=== PATIENT | female | born 1955 | race Caucasian/White ===

== ENCOUNTER 2020-05-25 14:49 | Emergency (ER) | payer OTHER, SELFPAY ==
--- NOTE | ~2020-05-25 | CT_ITS ---
EXAMINATION: CT abdomen pelvis wo con DATE: 05/25/2020 17:29 INDICATION: Right flank pain TECHNIQUE: Computed tomography (CT) of the abdomen and pelvis was performed without intravenous contr ast. The dose-length product (DLP) was 1366.69 mGy-cm. Automated exposure control and iterative recon struction technique were employed. COMPARISON: 07/06/2015, 05/14/2008 FINDINGS: The lung bases are clear. The heart size is normal. Again seen is a 6.0 x 4.6 cm low-attenu ation mass of liver segment VII with slight increase in size but benign behavior, likely a hemangioma . The gallbladder is surgically absent. The spleen, pancreas, and adrenal glands are normal. The left kidney is unremarkable. There is a 3 mm stone at the right ureterovesicular junction which causes mo derate right hydroureteronephrosis. There is fat stranding surrounding the right kidney. There is berta cified atherosclerosis of the aorta and many of the other arteries. No pathologically enlarged abdomi nal or pelvic lymph nodes are identified. There is no free intraperitoneal gas or evidence of bowel o bstruction. There is severe lumbar spondylosis. There is a small fat-containing umbilical hernia. Sarah nges of left total hip arthroplasty are noted. IMPRESSION: 1. 3 mm stone at the right ureterovesicular junction causing moderate right hydroureteronephrosis. Ri ght perinephric fat stranding could reflect superimposed pyelonephritis. Reviewed, dictated and finalized at location A. IMPRESSION: 1. 3 mm stone at the right ureterovesicular junction causing moderate right hyd roureteronephrosis. Right perinephric fat stranding could reflect superimposed pyelonephritis.
--- NOTE | ~2020-05-25 | XR_ITS ---
EXAMINATION: XR abdomen/kub 1V INDICATION: Right flank pain TECHNIQUE: Supine views of the abdomen were obtained on 2 radiographs. COMPARISON: CT from today and KUB dated 05/14/2008 FINDINGS: The 3 mm right ureterovesicular junction stone described on CT is not definitely identified . There are changes of left total hip arthroplasty. The bowel gas pattern is normal. The visualized l silvia bases are clear. IMPRESSION: 1. Known right ureterovesicular junction stone not definitely identified. Reviewed, dictated and finalized at location A.
[2020-05-25 15:00] VITALS: BP 164/91; PULSE 70; RESP 18; TEMP 36.3; O2SAT 98
[2020-05-25 15:15] LABS: Basophils Absolute Auto 0.1 K/mm3 (0.0-0.1); Basophils Percent Auto 0.5 % (0.2-1.2); Eosinophils Absolute Auto 0.1 K/mm3 (0-0.3); Eosinophils Percent Auto 1.1 % (0-4.4); Hematocrit 41.4 % (37.0-47.0); Hemoglobin 13.8 g/dL (12.0-15.0); Immature Granulocyte Absolute 0.05 K/mm3 (0.00-0.031); Immature Granulocyte Percent A 0.4 % (0-0.5); Lymphocytes Absolute Auto 1.91 K/mm3 (0.9-3.2); Lymphocytes Percent Auto 16.1 % (18.3-44.2); Mean Corpuscular HGB Conc 33.3 g/dl (32-36); Mean Corpuscular Hemoglobin 29.1 pg (26-34); Mean Corpuscular Volume 87.2 fl (80-100); Mean Platelet Volume 8.7 fl (7.4-10.4); Monocytes Absolute Auto 0.6 K/mm3 (0.1-0.6); Monocytes Percent Auto 4.9 % (2.6-8.5); Neutrophils Absolute Auto 9.2 K/mm3 (1.3-6.7); Platelet Count Result 335 k/mm3 (150-375); Red Blood Count 4.75 M/mm3 (4.2-5.4); Red Cell Distribution Width 13.3 % (11.5-14.5); White Blood Count 11.9 K/mm3 (4.5-10.0)
[2020-05-25 15:27] LABS: Blood Urea Nitrogen 24 mg/dL (7-17); Calcium 9.4 mg/dL (8.4-10.2); Carbon Dioxide 25 mmol/L (22-30); Chloride 108 mmol/L (98-107); Estimated CRCL calculation 95 ml/min; Estimated Glomerular Filt Rate > 60; Glucose 113 mg/dL (65-105); Potassium 4.2 mmol/L (3.4-5.0); Sodium 139 mmol/L (137-145)
--- NOTE | 2020-05-25 17:10 | ED.ABDPAIN ---
HPI - Abdominal Pain General Chief Complaint: Abdominal Pain Stated Complaint: Possible Kidney Stones Time Seen by Provider: 05/25/20 16:48 Source: patient Mode of arrival: ambulatory Limitations: no limitations History of Present Illness HPI narrative: THis patient is a 64 year old female with history of kidney stones who presents with complaint of right flank pain. THis pain started at noon and she states it is similar to previous kidney stone 5 years ago. She reports pain has constant and severe. Her pain radiates to her right lower abdomen. She has associated nausea but no vomiting. MD elicited complaint: flank pain Onset (ago): hour(s) (5) Pain Consistency: constant Location: R flank Severity: severe Migration to: RLQ Relieving factors: nothing Treatments prior to arrival: prescription analgesics (tylenol with codeine) Related Data Allergies Allergy/AdvReac Type Severity Reaction Status Date / Time Penicillins Allergy Mild Verified 02/17/12 12:54 Sulfa (Sulfonamide Allergy Mild Verified 02/17/12 12:54 Antibiotics) Review of Systems Review of Systems: All systems reviewed & are unremarkable except as noted in HPI and below Constitutional: Constitutional: Denies chills and Denies fever(s) Gastrointestinal: Gastrointestinal: Reports abdominal pain, Denies constipation, Denies diarrhea, Reports nausea and Denies vomiting Genitourinary: Genitourinary: Reports nocturia and Reports dysuria Musculoskeletal: Musculoskeletal: Reports back pain PMFSH Past Medical History Medical History (Updated 05/25/20 @ 19:30 by Kate Tubbs MD) Depression Diabetes mellitus Hypertension Migraine Surgical History Surgical History (Updated 05/25/20 @ 17:11 by Kate Tubbs MD) History of partial hysterectomy Hx of appendectomy Social History Social History (Updated 05/25/20 @ 17:11 by Kate Tubbs MD) Smoking status: Never smoker Alcohol intake: never Gender identity (if verbalized by the patient): Female Exam Narrative: Exam Narrative: GENERAL: Well-appearing, well-nourished, and in no acute distress. morbidly obese HEAD: Normocephalic, atraumatic EYES: PERRLA and EOMI, conjunctiva clear without discharge THROAT:Mucous membranes moist, NECK: Supple, without lymphadenopathy or mass RESPIRATORY: No respiratory distress, Airway patent, Respirations non-labored, Clear to auscultation without rales, rhonchi or wheeze HEART: Regular rate and rhythm. No murmur heard. Normal peripheral pulses. ABDOMEN: Soft, RUQ tTP, right lower TTP, nondistended, normal active bowel sounds. No masses. No rebound or guarding, No organomegaly. EXTREMITIES: No edema, normal strength with full range of motion. SKIN: Warm, dry, normal color without rash NEURO: Alert and oriented x3. CN 2-12 grossly intact. No focal deficits. PSYCH: Normal mood and affect. Course Reevaluation(s) Reevaluation #1: I Discussed with patient findings of ureteral stone. She denies any questions or concernes. Date: 05/25/20 Time: 19:29 Vital Signs Vital signs: Vital Signs Temperature 97.4 F L 05/25/20 15:00 Pulse Rate 70 05/25/20 15:00 Respiratory Rate 18 05/25/20 15:00 Blood Pressure 164/91 H 05/25/20 15:00 Pulse Oximetry 98 05/25/20 15:00 Temperature 97.4 F L 05/25/20 15:00 Pulse Rate 64 05/25/20 19:00 Respiratory Rate 16 05/25/20 19:00 Blood Pressure 169/94 H 05/25/20 19:00 Pulse Oximetry 98 05/25/20 15:00 MDM - Abdominal Pain Lab Data Attestation: I reviewed the patient's lab results. Result diagrams: 05/25/20 15:05 05/25/20 15:05 Labs: Lab Results 05/25/20 05/25/20 05/25/20 Range/Units 15:05 15:05 15:05 WBC 11.9 H (4.5-10.0) K/mm3 RBC 4.75 (4.2-5.4) M/mm3 Hgb 13.8 (12.0-15.0) g/dL Hct 41.4 (37.0-47.0) % MCV 87.2 (80-100) fl MCH 29.1 (26-34) pg MCHC 33.3 (32-36) g/dl RDW 13.3 (11.5-14.5) % Plt
[2020-05-25 17:23] LABS: Alanine Aminotransferase 20 U/L (4-35); Albumin Level 4.4 g/dL (3.5-5.1); Alkaline Phosphatase 87 U/L (38-126); Aspartate Amino Transferase 25 U/L (14-36); Bilirubin,Total 0.4 mg/dL (0.2-1.3); Lipase 39 U/L (23-300)
[2020-05-25] MEDS: MORPHINE SULFATE 4 MG/ML INJ IV PUSH (18:03)
[2020-05-25] MEDS: ONDANSETRON INJ 4 MG/2 ML VIAL IV PUSH (18:04)
[2020-05-25 18:23] LABS: Add Urine Microscopic? YES; Appearance Urine Clear (Clear); Bilirubin Urine Negative (Negative); Blood Urine Negative (Negative); Color Urine Yellow (Yellow); Glucose Urine UA Negative (Negative); Ketones Urine Negative (Negative); Leukocyte Esterase Ur Trace LEU/UL (Negative); Mucus Urine Rare /lpf; Nitrate Urine Negative (Negative); Protein Urine Negative (Negative); Specific Grav Ur 1.024 (1.001-1.035); Squamous Epithelial Cell Urine Moderate /hpf (Few); Urobilinogen Urine Negative mg/dL (<2.0)
[2020-05-25] MEDS: TAMSULOSIN HCL 0.4 MG CAPSULE PO (18:58)
[2020-05-25] MEDS: KETOROLAC 30 MG/ML VIAL (*BKC) IV PUSH (18:58)
[2020-05-25 19:00] VITALS: BP 169/94; PULSE 64; RESP 16
== END 2020-05-25 20:00 | disposition home or self-care (01) ==
PROVIDERS: Emergency Medicine; Emergency Provider General Practice; PCP Family Medicine
DX: N13.2 Hydronephrosis with renal and ureteral calculous obstruction (principal); F32.9 Major depressive disorder, single episode, unspecified; E11.9 Type 2 diabetes mellitus without complications; I10 Essential (primary) hypertension
CPT/HCPCS: 36415; 74018; 74176; 80048; 80076; 81001; 83690; 85025; 96374; 96375; 99284; A9270; J1885; J2270; J2405

== ENCOUNTER 2021-03-15 09:39 | Emergency (ER) | payer MEDICARE, MEDICAID, SELFPAY ==
--- NOTE | ~2021-03-15 | XR_ITS ---
EXAMINATION: XR foot LT min 3V DATE: 03/15/2021 09:57 INDICATION: Diffuse left foot pain and popping while walking. TECHNIQUE: Dorsoplantar, two oblique and lateral views of the left foot were obtained. COMPARISON: None. FINDINGS: Bone alignment is normal. No fracture. Multiple lucencies in the midfoot, many centered along the tar mick metatarsal joints which could represent degenerative subchondral cysts or erosions. The latter is favored as there are additional juxta articular erosions at the dorsal lateral aspect of the anterio r process of the calcaneus and at the dorsal medial aspect of the head of the talus with overhanging edges as classically seen with gout. Polyarticular osteoarthritis, moderate severity at the central t arsal metatarsal joints and mild at the remaining joints in the mid and hindfoot, the first metatarso phalangeal and several interphalangeal joints. Small Achilles calcaneal and large plantar calcaneal s purs. IMPRESSION: 1. Multiple likely erosions in the midfoot centered along the tarsal metatarsal joints shows at the a nterior talus and calcaneus which are suspicious for gout. 2. Mild to moderate polyarticular osteoarthritis most prominent in the midfoot. Reviewed, dictated and finalized at location A. IMPRESSION: 1. Multiple likely erosions in the midfoot centered along the tarsal metatarsal joints shows at the anterior talus and calcaneus which are suspicious for gout . 2. Mild to moderate polyarticular osteoarthritis most prominent in the midfoot.
--- NOTE | ~2021-03-15 | XR_ITS ---
XR ankle LT min 3V DATE: 03/15/2021 11:19 INDICATION: Injury, lateral swelling TECHNIQUE: 4 views COMPARISON: None FINDINGS: There is prominent osteoarthritic change at the tarsometatarsal joints as well as degenerat shikha change at the tarsal joints.. Prominent plantar and mild posterior calcaneal enthesopathy. No recent fracture or dislocation of the ankle or disruption of the ankle mortise is evident. IMPRESSION: No recent fracture or dislocation of the ankle Reviewed, dictated and finalized at location A.
[2021-03-15 09:41] VITALS: BP 143/79; PULSE 65; RESP 17; TEMP 36.6; O2SAT 99
--- NOTE | 2021-03-15 10:59 | ED.LOWEXIN ---
HPI - Extremity Injury (Lower) General Chief Complaint: Extremity Injury, Lower Stated Complaint: foot injury Time Seen by Provider: 03/15/21 10:50 Source: patient Mode of arrival: ambulatory Limitations: no limitations History of Present Illness HPI Narrative: This is a 65 year old female that presents to the ER for left foot pain since yesterday. Reports she was walking and felt a pop in the foot. Reports since she has had swelling and reports pain with weight bearing. Denies decreased ROM or numbness. Related Data Home Medications Medication Instructions Recorded Confirmed atorvastatin 20 mg tablet 20 mg PO QPM tablet 09/06/20 03/10/21 Allergies Allergy/AdvReac Type Severity Reaction Status Date / Time Penicillins Allergy Mild Rash Verified 03/15/21 09:44 Sulfa (Sulfonamide Allergy Mild Rash Verified 03/15/21 09:44 Antibiotics) Review of Systems Review of Systems: Narrative: CONSTITUTIONAL: Denies fever SKIN: Denies rash MUSCULOSKELETAL: Reports joint pain, and myalgia. 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 Osteoarthritis Prediabetes Surgical History Surgical History History of cholecystectomy (~1975) History of hip replacement (~2014) History of partial hysterectomy (~1999) Hx of appendectomy (Unknown) Family History Family History Mother Heart disease Hypertension Pacemaker Father Lymphoma Hypertension Cerebrovascular accident Sibling Depression Lymphedema Social History Social History Smoking status: Never smoker Alcohol intake: never Substance use: former Substance use type: crack/cocaine Gender identity (if verbalized by the patient): Female Exam Narrative: Exam Narrative: GENERAL: Well-appearing, well-nourished, and in no acute distress. HEAD: Normocephalic, atraumatic. EYES: EOMI. EXTREMITIES: Normal range of motion. No edema or obvious deformity. Normal DP pulses. Normal sensation SKIN: Warm, dry, no rash. NEURO: No focal deficits. Alert and oriented x3. PSYCH: Normal mood and affect Course Vital Signs Vital signs: Vital Signs Temperature 97.8 F 03/15/21 09:41 Pulse Rate 65 03/15/21 09:41 Respiratory Rate 17 03/15/21 09:41 Blood Pressure 143/79 H 03/15/21 09:41 Pulse Oximetry 99 03/15/21 09:41 Temperature 97.8 F 03/15/21 09:41 Pulse Rate 65 03/15/21 09:41 Respiratory Rate 17 03/15/21 09:41 Blood Pressure 143/79 H 03/15/21 09:41 Pulse Oximetry 99 03/15/21 09:41 MDM - Extremity Injury (Lower) MDM Narrative Medical decision making narrative: Patient presents the urgency department for left foot and ankle pain after an injury yesterday. No obvious deformity, erythema, or edema. Left foot and ankle x-rays are without acute osseous abnormalities. Patient placed in an Jerome wrap and instructed to use her walker. She was instructed on care of foot sprain. She is to follow-up with primary care doctor. She is given warnings to return to the ER Imaging Data Radiologist's impression: ITS Impressions Foot X-Ray 03/15/21 10:16 IMPRESSION: 1. Multiple likely erosions in the midfoot centered along the tarsal metatarsal joints shows at the anterior talus and calcaneus which are suspicious for gout. 2. Mild to moderate polyarticular osteoarthritis most prominent in the midfoot. Ankle X-Ray 03/15/21 11:21 IMPRESSION: No recent fracture or dislocation of the ankle C
[2021-03-15 13:11] VITALS: BP 156/85; PULSE 59; RESP 16; O2SAT 100
== END 2021-03-15 13:13 | disposition home or self-care (01) ==
PROVIDERS: Emergency Provider Emergency Medicine; PCP Family Medicine
DX: S93.602A Unspecified sprain of left foot, initial encounter (principal); E78.5 Hyperlipidemia, unspecified; Z87.442 Personal history of urinary calculi; I10 Essential (primary) hypertension; I25.2 Old myocardial infarction; R73.03 Prediabetes; Z96.649 Presence of unspecified artificial hip joint; M19.072 Primary osteoarthritis, left ankle and foot; R93.6 Abnormal findings on diagnostic imaging of limbs; X50.9XXA Other and unspecified overexertion or strenuous movements or postures, initial encounter; Y93.01 Activity, walking, marching and hiking
CPT/HCPCS: 73610; 73630; 99283

== ENCOUNTER 2022-06-26 12:19 | Emergency (ER) | payer MEDICARE, SELFPAY ==
[2022-06-26 12:31] VITALS: BP 135/81; PULSE 103; RESP 16; TEMP 37.1; O2SAT 97
--- NOTE | 2022-06-26 12:54 | ED.GENADULT ---
HPI - General Adult General Chief complaint: Unspecified Stated complaint: Weak passing blood Time Seen by Provider: 06/26/22 12:54 Source: patient and RN notes reviewed Mode of arrival: ambulatory Limitations: no limitations History of Present Illness HPI narrative: 66-year-old female presented for complaints of bright red bloody stools for the last 2 days. States it started with a few episodes of diarrhea then turned to blood only. She endorses passing blood clots, feeling fatigued, dizzy, nausea and lower abdominal pain. She also endorses 1 episode of shortness of breath at the onset of symptoms. She denies vomiting, fevers or chills. States her last colonoscopy was normal 2 years ago. She takes naproxen twice a day. Denies use of anticoagulants. History of peptic ulcer disease. She states she called her PCP and was instructed to go to the ER. Related Data Home Medications Medication Instructions Recorded Confirmed bupropion HCl 150 mg tablet,12 hr 150 mg PO DAILY 11/02/21 06/26/22 sustained-release trazodone 50 mg tablet 50 mg PO QHS 11/02/21 06/26/22 tramadol 50 mg tablet 50 mg PO BID PRN Pain 05/25/22 06/26/22 Allergies Allergy/AdvReac Type Severity Reaction Status Date / Time Penicillins Allergy Mild Rash Verified 06/26/22 12:36 Sulfa (Sulfonamide Allergy Mild Rash Verified 06/26/22 12:36 Antibiotics) Review of Systems Review of Systems: CONSTITUTIONAL: Denies body aches, fever, chills ENT: Denies rhinorrhea, congestion CARDIOVASCULAR: Denies chest pain, palpitations, or edema. RESPIRATORY: Denies cough or dyspnea. GASTROINTESTINAL: Endorses abdominal pain,hematochezia, nausea, diarrhea. GENITOURINARY: Denies dysuria, hematuria, or CVA tenderness. SKIN: Denies rash, itching, or wounds. MUSCULOSKELETAL: Denies back pain, joint pain, or myalgia. NEUROLOGIC: Denies headache, numbness, tingling, or weakness. All systems reviewed & are unremarkable except as noted in HPI and below PMFSH Past Medical History Medical History Allergies Anxiety Arthritis Chronic low back pain Depression Dyslipidemia Environmental allergies History of renal stone Hypertension Knee pain Migraine Myocardial infarct secondary to cocaine - 1995 Osteoarthritis Prediabetes Surgical History Surgical History History of cholecystectomy (~1975) History of hip replacement (~2014) History of partial hysterectomy (~1999) Hx of appendectomy (Unknown) Family History Family History Mother Heart disease Hypertension Pacemaker Father Lymphoma Hypertension Cerebrovascular accident Sibling Depression Lymphedema Social History Social History Smoking status: Never smoker Alcohol intake: never Substance use: former Substance use type: crack/cocaine Gender identity (if verbalized by the patient): Female Comments At time of signature, I have reviewed and agree with nursing past medical, surgical, social and family history unless otherwise noted. Please see nursing chart for further information. There is no relevant family history pertinent to the presenting complaint Exam Narrative: GENERAL: Well-appearing EYES: EOMI. Conjunctivae normal. ENT: Mucous membranes pink and moist. CHEST: No respiratory distress. Clear to auscultation. HEART: Regular rate and rhythm. ABDOMEN: abd soft, nondistended, normal active bowel sounds. Obese abdomen, Tender abdomen to bilateral lower quadrants; No guarding, rebound tenderness, asymmetry EXTREMITIES: Normal range of motion. No edema. SKIN: Warm, dry NEURO: No focal deficits. Alert and oriented x3. PSYCH: Normal affect. Course Course Emergency Course: Patient is aware of diagnosis, understands and agrees to treatment plan
== END 2022-06-26 13:10 | disposition short-term general hospital (02) ==
PROVIDERS: Emergency Provider Nurse Practitioner Family; PCP Family Medicine
DX: K92.1 Melena (principal); M19.90 Unspecified osteoarthritis, unspecified site; E78.5 Hyperlipidemia, unspecified; I10 Essential (primary) hypertension; I25.2 Old myocardial infarction; R73.03 Prediabetes; F41.9 Anxiety disorder, unspecified; F32.A Depression, unspecified
CPT/HCPCS: 99212; G0463

== ENCOUNTER 2022-06-26 14:33 | Emergency (ER) | payer MEDICARE, SELFPAY ==
[2022-06-26] VITALS (7 sets, daily range): BP systolic 118–157; BP diastolic 82–95; PULSE 71–98; RESP 18; TEMP 36.6–37.3; O2SAT 95–97
--- NOTE | ~2022-06-26 | CT_ITS ---
EXAMINATION: CT abdomen pelvis w con DATE: 06/26/2022 22:58 INDICATION: Lower GI bleed, eval for diverticulosis. ABDOMINAL PAIN. TECHNIQUE: Computed tomography (CT) of the abdomen and pelvis was performed with 100 mL Omnipaque-350 intravenous contrast. Automated exposure control and iterative reconstruction technique were employe d. The dose-length product was 1580.63 mGy-cm. COMPARISON: None. FINDINGS: Lower thorax: Bibasilar scar/atelectasis. Moderate coronary artery calcification. Liver: Mild liver enlargement. 5.8 cm right lobe cavernous hemangioma. Biliary/Gallbladder: Gallbladder is absent. No bile duct dilation. Pancreas: No mass or duct dilation. Fatty infiltration. Spleen: Normal. Adrenals:No mass. Kidneys: Right inferior pole hypodensity, too small to characterize but likely represents a cyst. No suspicious mass, stone, or hydronephrosis. GI tract: No small or large bowel dilation. Appendix not visualized. Short segment wall thickening wi th surrounding inflammatory change at the splenic flexure. No significant diverticulosis. Mesentery/Peritoneum: No ascites, mass, or free air. Retroperitoneum: No mass. Atherosclerotic abdominal aortic and/or arterial calcifications. Pelvis: Pelvic organs are mostly obscured by beam hardening artifact. Soft Tissues: Soft tissues and body wall unremarkable. Bones: No acute osseous finding. Right hip arthroplasty. IMPRESSION: Short segment wall thickening with surrounding inflammation at the splenic flexure, may reflect infec tious, inflammatory, or ischemic colitis. Reviewed, dictated and finalized at location K. IMPRESSION: Short segment wall thickening with surrounding inflammation at the splenic flex ure, may reflect infectious, inflammatory, or ischemic colitis.
[2022-06-26 15:06] LABS: Basophils Absolute Auto 0.1 K/mm3 (0.0-0.1); Basophils Percent Auto 0.5 % (0.2-1.2); Eosinophils Absolute Auto 0.1 K/mm3 (0-0.3); Eosinophils Percent Auto 0.8 % (0-4.4); Hematocrit 40.2 % (37.0-47.0); Hemoglobin 13.3 g/dL (12.0-15.0); Immature Granulocyte Absolute 0.06 K/mm3 (0.00-0.031); Immature Granulocyte Percent A 0.4 % (0-0.5); Lymphocytes Absolute Auto 2.18 K/mm3 (0.9-3.2); Lymphocytes Percent Auto 15.7 % (18.3-44.2); Mean Corpuscular HGB Conc 33.1 g/dl (32-36); Mean Corpuscular Hemoglobin 29.7 pg (26-34); Mean Corpuscular Volume 89.7 fl (80-100); Mean Platelet Volume 8.4 fl (7.4-10.4); Monocytes Absolute Auto 0.8 K/mm3 (0.1-0.6); Monocytes Percent Auto 5.6 % (2.6-8.5); Neutrophils Absolute Auto 10.7 K/mm3 (1.3-6.7); Platelet Count Result 329 k/mm3 (150-375); Red Blood Count 4.48 M/mm3 (4.2-5.4); Red Cell Distribution Width 13.7 % (11.5-14.5); White Blood Count 13.9 K/mm3 (4.5-10.0)
[2022-06-26 15:16] LABS: Alanine Aminotransferase 19 U/L (6-35); Albumin Level 4.1 g/dL (3.5-5.1); Alkaline Phosphatase 92 U/L (38-126); Anion Gap 11 mmol/L (8-16); Aspartate Amino Transferase 17 U/L (14-36); Bilirubin,Total 0.7 mg/dL (0.2-1.3); Blood Urea Nitrogen 20 mg/dL (7-17); Calcium 9.4 mg/dL (8.4-10.2); Carbon Dioxide 23 mmol/L (22-30); Chloride 106 mmol/L (98-107); Estimated CRCL calculation 91 ml/min; Estimated Glomerular Filt Rate > 60; Glucose 99 mg/dL (65-110); Potassium 3.9 mmol/L (3.4-5.0); Sodium 140 mmol/L (137-145)
[2022-06-26 15:18] LABS: Partial Thromboplastin Time 31.4 SECONDS (22.3-36.8); Prothrombin Time 13.1 Seconds (11.1-14.7)
--- NOTE | 2022-06-26 21:21 | ED.GIBLEED ---
HPI - GI Bleed General Chief complaint: GI Bleed Stated complaint: diarrhea, blood stools Time Seen by Provider: 06/26/22 21:08 History of Present Illness HPI Narrative: This is a 66-year-old female with past medical history of hypertension anxiety, who presents to the emergency department complaining of bright red blood in stool seen 2 days ago with last episode 1 day ago. She states over the weekend she noted multiple loose stools, associated with cramping abdominal pain, 2 days ago she noted bright red blood with passage of some clots, that recurred again yesterday. This was associated with straining, and mild pain with defecation. She denies bleeding from elsewhere. She denies lightheadedness, shortness of breath, chest pain or other complaints. She states she does not take blood thinners. Related Data Home Medications Medication Instructions Recorded Confirmed bupropion HCl 150 mg tablet,12 hr 150 mg PO DAILY 11/02/21 06/26/22 sustained-release trazodone 50 mg tablet 50 mg PO QHS 11/02/21 06/26/22 tramadol 50 mg tablet 50 mg PO BID PRN Pain 05/25/22 06/26/22 Allergies Allergy/AdvReac Type Severity Reaction Status Date / Time Penicillins Allergy Mild Rash Verified 06/26/22 12:36 Sulfa (Sulfonamide Allergy Mild Rash Verified 06/26/22 12:36 Antibiotics) Review of Systems Review of Systems: CONSTITUTIONAL: Denies fever, chills, or sweats. EYES: Denies visual changes, redness, or discharge. ENT: Denies rhinorrhea, congestion, sore throat, or otalgia. CARDIOVASCULAR: Denies chest pain, palpitations, or edema. RESPIRATORY: Denies cough or dyspnea. GASTROINTESTINAL: Abdominal pain, loose stools, bright red blood per rectum, denies nausea or vomiting GENITOURINARY: Denies dysuria or hematuria. SKIN: Denies rash or itching. MUSCULOSKELETAL: Denies back pain, joint pain, or myalgia. NEUROLOGIC: Denies headache, numbness, dizziness, or weakness. PSYCHIATRIC: Denies anxiety or depression. 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 Osteoarthritis Prediabetes Surgical History Surgical History History of cholecystectomy (~1975) History of hip replacement (~2014) History of partial hysterectomy (~1999) Hx of appendectomy (Unknown) Family History Family History Mother Heart disease Hypertension Pacemaker Father Lymphoma Hypertension Cerebrovascular accident Sibling Depression Lymphedema Social History Social History Smoking status: Never smoker Alcohol intake: never Substance use: former Substance use type: crack/cocaine Gender identity (if verbalized by the patient): Female Exam Narrative: GENERAL: Well-appearing, well-nourished, and in no acute distress, appears anxious. HEAD: Normocephalic, atraumatic. EYES: PERRLA and EOMI. ENT: Nares clear, no rhinorrhea or epistaxis. Mucous membranes moist. Oropharynx without tonsillar hypertrophy exudate or other lesions. Bilateral TMs pearly saldivar nonbulging CHEST: Clear to auscultation. No respiratory distress. No wheezes rales or rhonchi HEART: Regular rate and rhythm. No murmur heard. Normal peripheral pulses. ABDOMEN: Soft, minimal lower quadrant tenderness palpation without rebound or mass nondistended, normal active bowel sounds. RECTAL: 2 external hemorrhoids noted at the 12 and 6 o'clock position without active bleeding, mild tenderness to palpation with digital rectal exam, Hemoccult positive EXTREMITIES: Normal range of motion. No edema. SKIN: Warm, dry, no rash. NEURO: No focal deficits. Alert and orie
[2022-06-26] MEDS: ACETAMINOPHEN 500 MG TABLET 1000 MG PO (22:00)
[2022-06-26] MEDS: FAMOTIDINE 20 MG TABLET PO (22:01)
[2022-06-27 01:55] VITALS: BP 140/72; PULSE 82; RESP 18; O2SAT 98
[2022-06-27 01:56] VITALS: BP 140/70; PULSE 78; RESP 18; O2SAT 98
== END 2022-06-27 01:57 | disposition home or self-care (01) ==
PROVIDERS: Emergency Medicine; Emergency Provider Preventive Medicine Aerospace Medicine; PCP Family Medicine
DX: K64.4 Residual hemorrhoidal skin tags (principal); I10 Essential (primary) hypertension; E78.5 Hyperlipidemia, unspecified; I25.2 Old myocardial infarction; R73.03 Prediabetes; M19.90 Unspecified osteoarthritis, unspecified site; F41.9 Anxiety disorder, unspecified; Z87.442 Personal history of urinary calculi; Z96.649 Presence of unspecified artificial hip joint; Z90.711 Acquired absence of uterus with remaining cervical stump
CPT/HCPCS: 36415; 74177; 80053; 85025; 85610; 85730; 86850; 86900; 86901; 99284; A9270; Q9967

== ENCOUNTER → 2022-07-05 14:31 | Outpatient (CLI) | payer MEDICARE, SELFPAY ==
--- NOTE | ~2022-07-05 | XR_ITS ---
EXAM: XR ankle RT min 3V DATE: 07/05/2022 14:45 HISTORY: M25.571 - Pain in right ankle and joints of right foot . COMPARISON: None available. FINDINGS: Normal mineralization. No fracture or dislocation. No lytic or blastic lesion. Achilles an d plantar enthesopathy. Prominent os trigonum, which can be seen with posterior impingement. Sclerosi s and osteophytosis, mild at the tibiotalar joint, and moderate-severe at multiple midfoot joints. No erosion or periosteal change. Soft tissues within normal limits. IMPRESSION: No acute osseous finding the right ankle. Chronic and degenerative changes described abov e. Reviewed, dictated and finalized at location K. IMPRESSION: No acute osseous finding the right ankle. Chronic and degenerative changes described above.
== END ==
PROVIDERS: PCP Family Medicine; Visit Provider Family Medicine
DX: M25.571 Pain in right ankle and joints of right foot (principal)
CPT/HCPCS: 73610

== ENCOUNTER 2023-05-17 01:40 | Day surgery (SDC) | payer MEDICARE, SELFPAY ==
[2023-05-14 09:21] VITALS: BMI 49.5
[2023-05-17 10:00] VITALS: BP 139/97; PULSE 94; RESP 18; TEMP 36.1; O2SAT 96
--- NOTE | 2023-05-17 10:02 | WPDHPUPDATE1 ---
History and Physical Update Update Date/Time: 05/17/23 10:02 History and Physical has been reviewed, including an updated exam of the patient. There are NO changes in the patient's condition. Risks, benefits, and alternatives have been discussed and questions answered. Patient agrees to proceed with procedure.
[2023-05-17] MEDS: LACTATED RINGERS 1,000 ML 150 ML IV CONT (10:08)
--- NOTE | 2023-05-17 10:14 | WPDANESEPPF ---
Anes - Initial Pre Proc Eval Procedure: Operation Date: 05/17/23 11:00 Proposed Procedures p Colonoscopy - Smooth Poon MD Date/Time: 05/17/23 10:14 Surgeon: Smooth Poon MD Pre Op Diagnosis: abdominal pain, constipation, Patient Data Age: 67 Gender: F Height: 1.65 m Weight: 132 kg Last Vital Signs Temp 97 F L 05/17/23 10:00 Pulse 94 05/17/23 10:00 Resp 18 05/17/23 10:00 BP 139/97 H 05/17/23 10:00 Pulse Ox 96 05/17/23 10:00 O2 Del Method Room Air 05/17/23 10:00 Allergies Allergy/AdvReac Type Severity Reaction Status Date / Time Penicillins Allergy Mild Rash Verified 05/17/23 09:56 Sulfa (Sulfonamide Allergy Mild Rash Verified 05/17/23 09:56 Antibiotics) Home Medications Medication Instructions Recorded Confirmed Type tramadol 50 mg tablet 50 mg PO BID PRN Pain 05/25/22 05/14/23 History trazodone 50 mg tablet 50 mg PO QHS PRN sleep #90 tabs 10/10/22 05/14/23 Rx diclofenac sodium 75 mg 75 mg PO BID 02/20/23 05/14/23 History tablet,delayed release famotidine 40 mg tablet (Pepcid) 40 mg PO DAILY #90 tabs 02/20/23 05/14/23 Rx hydroxyzine HCl 25 mg tablet 25 mg PO QID PRN anxiety #90 tabs 02/20/23 05/14/23 Rx lisinopril 40 mg tablet 40 mg PO DAILY #90 tabs 03/06/23 05/14/23 Rx atorvastatin 20 mg tablet 20 mg PO QHS #90 tabs 03/21/23 05/14/23 Rx amlodipine 5 mg tablet 5 mg PO DAILY #90 tabs 04/02/23 05/14/23 Rx bupropion HCl 150 mg tablet,12 hr 150 mg PO DAILY #180 tabs 04/30/23 05/14/23 Rx sustained-release docusate sodium 100 mg capsule 100 mg PO .HS #30 caps 05/03/23 05/14/23 Rx (Colace) polyethylene glycol 3350 17 17 g PO DAILY #238 grams 06/08/23 06/19/23 Rx gram/dose oral powder (Miralax) Patient hx anesthesia problems: none Family hx anesthesia problems: none Results Review: All pre-operative results and documents have been reviewed as part of the pre-operative evaluation. [facility] Past Medical History Medical History (Updated 05/03/23 @ 11:57 by Elva Vital APRN) Allergies Anxiety Arthritis Change in bowel habits Chronic low back pain Colitis Colon wall thickening Constipation Depression Dyslipidemia Environmental allergies GERD (gastroesophageal reflux disease) History of renal stone Hypertension Irritable bowel syndrome with constipation Knee pain Migraine Myocardial infarct secondary to cocaine - 1995 Obesity Osteoarthritis Prediabetes Surgical History Surgical History History of cholecystectomy (~1975) History of hip replacement (~2014) History of partial hysterectomy (~1999) Hx of appendectomy (Unknown) Family History Family History Mother Heart disease Hypertension Pacemaker Father Lymphoma Hypertension Cerebrovascular accident Sibling Depression Lymphedema Social History Social History Smoking status: Never smoker Alcohol intake: never Substance use: current Substance use type: other Other substance usage details: cocaine in the 90's; marijuana gummies on occasion-none for 2 weeks Living arrangements: with family Gender identity (if verbalized by the patient): Female Spiritual care concerns: No Anes - Eval Final PreProcedure Day of Procedure 05/17/23 10:14 Patient weight: morbidly obese Heart: regular rate and rhythm Lungs: clear to auscultation Airway: Mallampati scale class III Neurological: alert and oriented Last oral intake: >/= 8 hours ASA classification: III Emergent: no Anesthetic plan: proceed Anesthesia type and monitoring: general GIVS and standard monitoring Results Review: All pre-operative results and documents have been reviewed as part of the pre-operative evaluation. Informed Consent: The patient's anesthetic plan and its attendant risks and benefits were discussed with the patient/fa
[2023-05-17 10:54] VITALS: BP 110/73; PULSE 118; RESP 21; O2SAT 96
[2023-05-17 11:04] VITALS: BP 108/81; PULSE 91; RESP 18; O2SAT 96
[2023-05-17 11:14] VITALS: BP 112/76; PULSE 81; RESP 23; O2SAT 96
== END 2023-05-17 11:27 | disposition home or self-care (01) ==
PROVIDERS: PCP Family Medicine; Visit Provider Internal Medicine Gastroenterology
PROC: 0DJD8ZZ Inspection of Lower Intestinal Tract, Via Natural or Artificial Opening Endoscopic (ICD-10-PCS; CPT 45378; principal; 2023-05-17 11:00)
DX: Z12.11 Encounter for screening for malignant neoplasm of colon (principal); K64.8 Other hemorrhoids; E78.5 Hyperlipidemia, unspecified; K21.9 Gastro-esophageal reflux disease without esophagitis; F32.A Depression, unspecified; F41.9 Anxiety disorder, unspecified; K58.1 Irritable bowel syndrome with constipation; I25.2 Old myocardial infarction; I10 Essential (primary) hypertension; R73.03 Prediabetes; E66.01 Morbid (severe) obesity due to excess calories; Z68.42 Body mass index [BMI] 45.0-49.9, adult; F12.90 Cannabis use, unspecified, uncomplicated
CPT/HCPCS: G0121; J2704; J7120

== ENCOUNTER 2023-10-25 11:00 | Outpatient (CLI) | payer MEDICARE, MEDICAID, SELFPAY | END 2023-10-25 11:01 | disposition home or self-care (01) | PROVIDERS: PCP Family Medicine; Visit Provider Otolaryngology | DX: H91.92 Unspecified hearing loss, left ear (principal) | CPT/HCPCS: 92557; 92567 ==

== ENCOUNTER 2024-02-18 10:10 | Outpatient (CLI) | payer MEDICARE, MEDICAID, SELFPAY ==
[2024-02-18 12:07] LABS: Influenza A QL RT-PCR Negative (Negative); Influenza B QL RT-PCR Negative (Negative); RSV RNA, RT-PCR Negative (Negative); SARS-CoV-2 RNA PCR Positive (Negative)
== END 2024-02-18 10:11 | disposition home or self-care (01) ==
LOC: ANHLAB 10:12
PROVIDERS: PCP Family Medicine; Visit Provider Family Medicine
DX: U07.1 COVID-19 (principal)
CPT/HCPCS: 87637

== ENCOUNTER 2024-03-13 10:50 | Outpatient (CLI) | payer MEDICARE, MEDICAID, SELFPAY ==
[2024-03-13 13:53] LABS: Hemoglobin A1C 5.7 % (<5.7)
[2024-03-13 14:09] LABS: Alanine Aminotransferase 24 U/L (6-35); Albumin Level 4.7 g/dL (3.5-5.1); Alkaline Phosphatase 79 U/L (38-126); Anion Gap 8 mmol/L (4-12); Aspartate Amino Transferase 45 U/L (14-36); Bilirubin,Total 0.7 mg/dL (0.2-1.3); Blood Urea Nitrogen 25 mg/dL (7-17); Calcium 9.9 mg/dL (8.4-10.2); Carbon Dioxide 24 mmol/L (22-30); Chloride 108 mmol/L (98-107); Estimated Glomerular Filt Rate > 60; Glucose 95 mg/dL (65-110); Potassium 4.4 mmol/L (3.4-5.0); Sodium 140 mmol/L (137-145)
[2024-03-13 14:42] LABS: Vitamin D 25 Hydroxy 25.8 ng/mL
== END 2024-03-13 10:51 | disposition home or self-care (01) ==
LOC: ANHGOSHLAB 10:52
PROVIDERS: PCP Family Medicine; Visit Provider Family Medicine
DX: R73.03 Prediabetes (principal); E55.9 Vitamin D deficiency, unspecified; I10 Essential (primary) hypertension
CPT/HCPCS: 36415; 80053; 82306; 83036

== ENCOUNTER 2024-03-13 11:39 | Outpatient (CLI) | payer MEDICARE, MEDICAID, SELFPAY ==
--- NOTE | ~2024-03-13 | XR_ITS ---
Cervical Spine: AP, lateral, open-mouth views Clinical History: Pain Findings: The normal lordotic curve is maintained. The vertebral bodies and posterior elements appea r intact. The intervertebral disc spaces are well maintained. Moderate facet joint degenerative lechuga ges are present throughout cervical spine. Pre-vertebral soft tissues are unremarkable. Impression: Moderate facet arthropathy throughout the cervical spine. Reviewed, dictated and finalized at location . Impression: Moderate facet arthropathy throughout the cervical spine.
== END 2024-03-13 11:40 ==
PROVIDERS: PCP Family Medicine; Visit Provider Family Medicine
DX: M62.830 Muscle spasm of back (principal); M54.2 Cervicalgia
CPT/HCPCS: 72050

== ENCOUNTER 2024-08-05 12:42 | Outpatient (CLI) | payer MEDICARE, SELFPAY ==
--- NOTE | ~2024-08-05 | MM_ITS ---
EXAMINATION: MM screening michael BI w ana HISTORY: Screening mammogram TECHNIQUE: Craniocaudal and mediolateral oblique 3-D tomosynthesis images were obtained and synthetic 2-D images were generated. CAD analysis was submitted and interpreted. COMPARISON: No prior mammogram is available for comparison at this institution. BREAST PARENCHYMAL COMPOSITION:Not Dense. The breasts are almost entirely fatty FINDINGS: No suspicious mass, calcification, or architectural distortion are identified in either zonia ast to suggest malignancy. There has been no suspicious interval change. IMPRESSION: No mammographic evidence of malignancy. Recommend routine screening mammography in one year. BI-RADS Category 1: Negative Reviewed, dictated and finalized at location .
== END 2024-08-05 12:43 | disposition home or self-care (01) ==
LOC: MICIMG 12:43
PROVIDERS: PCP Family Medicine; Visit Provider Family Medicine
DX: Z12.31 Encounter for screening mammogram for malignant neoplasm of breast (principal); Z78.0 Asymptomatic menopausal state
CPT/HCPCS: 77063; 77067

== ENCOUNTER 2025-09-10 10:32 | Outpatient (CLI) | payer MEDICARE, SELFPAY ==
[2025-09-10 19:42] LABS: Hematocrit 42.1 % (37.0-47.0); Hemoglobin 14.0 g/dL (12.0-15.0); Immature Granulocyte Percent A 0.3 % (0-0.5); Lymphocytes Absolute Auto 2.52 K/mm3 (0.9-3.2); Mean Corpuscular HGB Conc 33.3 g/dl (32-36); Mean Corpuscular Hemoglobin 29.5 pg (26-34); Mean Corpuscular Volume 88.6 fl (80-100); Nucleated Red Blood Cells Absolute Auto 0.000 K/mm3 (0.0-0.012); Nucleated Red Blood Cells Perc 0.0 % (0.0-0.2); Platelet Count Result 389 k/mm3 (150-375); Red Blood Count 4.75 M/mm3 (4.2-5.4); White Blood Count 9.2 K/mm3 (4.5-10.0)
[2025-09-10 20:12] LABS: Alanine Aminotransferase 23 U/L (6-35); Albumin Level 4.2 g/dL (3.5-5.1); Alkaline Phosphatase 80 U/L (38-126); Anion Gap 8 mmol/L (4-12); Aspartate Amino Transferase 40 U/L (14-36); Bilirubin,Total 0.4 mg/dL (0.2-1.3); Blood Urea Nitrogen 19 mg/dL (7-17); Calcium 9.3 mg/dL (8.4-10.2); Carbon Dioxide 25 mmol/L (22-30); Chloride 107 mmol/L (98-107); Cholesterol 178 mg/dL (0-200); Estimated Glomerular Filt Rate > 60; Glucose 91 mg/dL (65-110); HDL Direct 49 mg/dL; Potassium 4.0 mmol/L (3.4-5.0); Sodium 140 mmol/L (137-145); Total Protein 6.9 g/dL (6.3-8.2); Triglycerides 246 mg/dL (<150)
[2025-09-10 20:48] LABS: Thyroid Stimulating Hormone Reflex 1.470 uIU/mL (0.465-4.68)
[2025-09-10 21:28] LABS: Vitamin B12 300.0 pg/mL (239-931)
[2025-09-10 22:00] LABS: Hemoglobin A1C 5.7 % (<5.7)
== END 2025-09-10 10:33 | disposition home or self-care (01) ==
LOC: ANHGOSHLAB 10:32
PROVIDERS: PCP Family Medicine; Visit Provider Family Medicine
DX: E78.5 Hyperlipidemia, unspecified (principal); E53.8 Deficiency of other specified B group vitamins; I10 Essential (primary) hypertension; Z00.00 Encounter for general adult medical examination without abnormal findings; R73.03 Prediabetes; E55.9 Vitamin D deficiency, unspecified
CPT/HCPCS: 36415; 80053; 80061; 82306; 82607; 83036; 84443; 85025